=== PATIENT | male | born 2000 | race Caucasian/White ===

== ENCOUNTER 2023-11-03 18:57 | Emergency (ER) | payer BC ==
[~2023-11-03] VITALS: Ht 180.3 cm; Wt 94.8 kg
[~2023-11-03 18:57] MED LIST: CEPH500B PO
[2023-11-03 19:18] VITALS: BP 139/80; PULSE 88; RESP 20; O2SAT 98
[2023-11-03] MEDS: SULFAMETHOX-TMP DS 800/160 TAB PO SCH (19:20)
[2023-11-03] MEDS ORDERED: SULF1TAB42 PO (20:05)
== END 2023-11-03 20:07 | disposition home or self-care (01) ==
LOC: EDH 18:57
DX: S80.12XA Contusion of left lower leg, initial encounter (principal); L03.116 Cellulitis of left lower limb; M79.662 Pain in left lower leg; X58.XXXA Exposure to other specified factors, initial encounter; Y93.89 Activity, other specified; Y92.89 Other specified places as the place of occurrence of the external cause; Y99.8 Other external cause status
CPT/HCPCS: 76882; 93971